=== PATIENT | female | born 1985 | race Two or more races ===

== ENCOUNTER → 2017-11-13 | Outpatient (CLI) | payer OTHER | LOC: M WUC 11:31 | DX: J45.901 Unspecified asthma with (acute) exacerbation (principal) | CPT/HCPCS: 71046 ==

== ENCOUNTER → 2018-03-08 | Outpatient (CLI) | payer OTHER | LOC: M WUC 13:27 | DX: S93.402A Sprain of unspecified ligament of left ankle, initial encounter (principal); S93.602A Unspecified sprain of left foot, initial encounter; X58.XXXA Exposure to other specified factors, initial encounter; Y92.9 Unspecified place or not applicable | CPT/HCPCS: 73610 ==

== ENCOUNTER 2021-11-04 22:07 | Emergency (ER) | payer OTHER ==
[~2021-11-04] VITALS: Ht 167.6 cm; Wt 118.0 kg
[~2021-11-04 22:07] MED LIST: *ANUSOI RE; ACET500C OR; ALBUTEROL INH; COLA100C2 OR; FLOV50AE IN; IBUP600T OR; LEVO25TA2 OR; MILKSUS OR; MOM OR; PRENTAB8 PO; TYLE500T53 OR
[2021-11-04] MEDS ORDERED: NS 1,000 ML IV ONE (23:40)
[2021-11-05 00:14] LABS: VENOUS BASE EXCESS -1.3 (-2.0-2.0); VENOUS HCO3 22.1 MEQ/L (23.0-27.0); VENOUS O2 SATURATION 97.1 % (60.0-80.0); VENOUS PARTIAL PRESSURE CO2 33.6 mmHg (38.0-50.0); VENOUS PARTIAL PRESSURE O2 89.4 mmHg (30.0-50.0); VENOUS PH 7.435 UNITS (7.330-7.430); VENOUS STANDARD HCO3 23.4 MEQ/L; VENOUS TOTAL CO2 23.1 MEQ/L (24.0-28.0)
[2021-11-05 00:47] LABS: BASO % 0.4 % (0.0-1.0); EOS % 0.3 % (0.0-3.0); HEMATOCRIT 47.1 % (36.0-47.0); HEMOGLOBIN 15.9 g/dl (12.0-15.5); LYMPH % 39.5 % (24.0-44.0); MEAN CORPUSCULAR HEMOGLOBIN 29.2 pg (27.0-33.0); MEAN CORPUSCULAR HGB CONC 33.8 g/dl (32.0-36.5); MEAN CORPUSCULAR VOLUME 86.4 fl (80.0-96.0); MONO # 0.8 10^3/uL (0.0-0.8); MONO % 10.2 % (2.0-8.0); NEUTROPHILS # 3.7 10^3/uL (1.5-8.5); NEUTROPHILS % 49.3 % (36.0-66.0); PLATELET COUNT, AUTOMATED 343 10^3/uL (150-450); RED BLOOD COUNT 5.45 10^6/uL (4.00-5.40); WHITE BLOOD COUNT 7.5 10^3/uL (4.0-10.0)
[2021-11-05] MEDS ORDERED: ISOVUE-370 76% 100ML VIAL As Ordered ONE (00:54)
[2021-11-05 00:56] LABS: CK-MB VALUE MASS < 1.0 NG/ML (<3.6); CPK CREATINE PHOSPHOKINASE 124 U/L (26-192); MB/CK RELATIVE INDEX 0.81 (< OR =4)
[2021-11-05 01:06] LABS: BLOOD UREA NITROGEN 17 MG/DL (7-18); CALCIUM LEVEL 9.5 MG/DL (8.5-10.1); CARBON DIOXIDE LEVEL 29 MEQ/L (21-32); CHLORIDE LEVEL 102 MEQ/L (98-107); GLOMERULAR FILTRATION RATE > 60.0 (>60); GLUCOSE, FASTING 104 MG/DL (70-100); POTASSIUM SERUM 3.7 MEQ/L (3.5-5.1); SODIUM LEVEL 136 MEQ/L (136-145)
[2021-11-05 01:08] LABS: HCG, SERUM QUALITATIVE NEGATIVE (NEGATIVE)
[2021-11-05 01:08] LABS: CK-MB VALUE MASS < 1.0 NG/ML (<3.6); CPK CREATINE PHOSPHOKINASE 77 U/L (26-192)
[2021-11-05 02:30] VITALS: BP 110/75
[2021-11-05] MEDS ORDERED: BENZONATATE 100MG CAPSULE PO ONE (02:50)
[2021-11-05] MEDS ORDERED: predniSONE 20 MG TAB PO ONE (02:50)
[2021-11-05] MEDS ORDERED: BENZ200C70 PO (02:51)
[2021-11-05] MEDS ORDERED: PRED20TA PO (02:51)
== END 2021-11-05 03:10 | disposition home or self-care (01) ==
LOC: M ED 22:07
DX: J20.8 Acute bronchitis due to other specified organisms (principal); Z86.16 Personal history of COVID-19; J45.909 Unspecified asthma, uncomplicated
CPT/HCPCS: 71275; 80048; 82550; 82553; 82803; 84703; 85025; 93005; 93041; 94760; 96360; 99285; J7512; Q9967